=== PATIENT | female | born 1980 | race Caucasian/White ===

== ENCOUNTER 2016-09-01 11:50 | Emergency (ER) | payer OTHER ==
[~2016-09-01] VITALS: Ht 172.7 cm; Wt 77.1 kg
[~2016-09-01 11:50] MED LIST: ACHYD1T PO; AGM875T PO; BUPR-168 PO; CEFP250T2 PO; CLIN300C3 PO; CYCL-97 PO; DICL50TA3 PO; HYDR-34 PO; HYDR-757 PO; IBUP-15 PO; LIDO5CRE20 TP; MUPI15CR TP; NAPR550T PO; NF-OLOP5ML OP; RIVA20TA PO; SENN1TAB76 PO; SULF1TAB35 PO; TRAM-21 PO; WARF6TAB PO; WRF1T PO; WRF2T PO
[2016-09-01] MEDS ORDERED: SULF1TAB35 PO (12:10)
[2016-09-01] MEDS ORDERED: HYDR-757 PO (12:10)
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
[2016-09-01] MEDS ORDERED: TRIM/SULFAMETH 160/800 (SEPTRA DS) TAB PO ONE (12:15)
[2016-09-01] MEDS ORDERED: HYDROcodone/APAP 5 MG/325 MG (LORTAB) TAB PO ONE (12:15)
[2016-09-01 12:22] VITALS: BP 124/70
== END 2016-09-01 12:22 | disposition home or self-care (01) ==
LOC: EDUNIT# 11:50 → ER 11:53
DX: L02.412 Cutaneous abscess of left axilla (principal)
CPT/HCPCS: 99281

== ENCOUNTER 2019-11-01 00:32 | Emergency (ER) | payer SELFPAY ==
[~2019-11-01] VITALS: Ht 182.9 cm; Wt 99.8 kg
[~2019-11-01 00:32] MED LIST changes: +HYDR-4226 PO; -HYDR-757 PO; -LIDO5CRE20 TP; +LIDO5CRE24 TP; -RIVA20TA PO; +RIVA20TA2 PO
--- OUTSIDE RECORDS SUMMARY | 2019-11-01 00:38 | XMS REPORT ---
Author Author [facility] Organization [facility] 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 Name Role Phone MARK JACOBSON Unavailable NO, LOCAL PHYSICIAN Unavailable Unavailable MARK JACOBSON Unavailable MARK JACOBSON Unavailable MARK JACOBSON Unavailable ESTEPHANIA QUINTERO Unavailable Unavailable MARK JACOBSON MD Unavailable Unavailable MARK JACOBSON MD Unavailable Unavailable LYNDA LAUREANO DO Unavailable Unavailable JAMES ALLEN Unavailable Unavailable MARK JACOBSON MD Unavailable Unavailable AMY VERA APRN Unavailable Unavailable BRUNO GALVAN MD Unavailable Unavailable YULI KRUGER Unavailable Unavailable VIRIDIANA ANDERSON DO Unavailable Unavailable Unavailable Unavailable PCP, OUTSIDE Unavailable Unavailable Allergies Normalized Allergy Reported Date of Reaction(s) Care Provider Facility Allergy Type classification allergen Allergy Onset DA (20 Unclassified No Known Drug 11-07-2012 - no information MARK JACOBSON Not Available sources.) Allergies MD (03270) Medications No Information Problems Active Problems Problem Normalized Date of Normalized Normalized Provider Fac ility Classification Problem(s) Problem Problem Problem Sta tus Onset/Resoluti Duration on Asthma (2 Asthma, Chronic Active MARK JACOBSON Not Avai lable sources.) unspecified MD (81514) type, unspecified Phlebitis; Chronic venous Chronic Active JAMES ALLEN Not Available thrombophlebit embolism and (53460) is and thrombosis of thromboembolis unspecified m (2 sources.) deep vessels of lower extremity Coagulation Other and Chronic Active ESTEPHANIA Not Availa ble and unspecified DARLENE GARCIA (37669) hemorrhagic coagulation disorders (1 defects source.) Systemic lupus Systemic lupus Chronic Active ESTEPHANIA No t Available erythematosus erythematosus DARLENE GARCIA (71468) and connective tissue disorders (2 sources.) Substance-rela Tobacco use Chronic Active MARK JACOBSON Not Available maris disorders disorder , (35120) (2 sources.) Past or Other Problems Problem Normalized Date of Normalized Normalized Provider Fac ility Classification Problem(s) Problem Problem Problem Sta tus Onset/Resoluti Duration on Other Abnormal Episodic Completed ESTEPHANIA Not Available screening for coagulation DARLENE GARCIA (31051) suspected profile conditions (not mental disorders or infectious disease) (1 source.) Phlebitis; Acute venous Episodic Completed MARK JACOBSON Not Available thrombophlebit embolism and , () is and thrombosis of thromboembolis deep vessels m (6 sources.) of proximal lower extremity Translations: [ HX-VENOUS THROMBOSIS EMBOLISM, VENOUS THROMBOSIS NOS] Deficiency and Anemia, Episodic Completed MARKAncelmo JACOBSON Not Available other anemia unspecified , () (1 source.) Nonspecific Chest pain, Episodic Completed ESTEPHANIA Not Avai lable chest pain (2 unspecified DARLENE GARCIA (49275) sources.) Other Encounter for Episodic Completed MARKAncelmo JACOBSON Not Available aftercare (4 therapeutic , (56350) sources.) drug monitoring Residual Family history Episodic Completed MARK INDIRA No t Available codes; of ischemic MD () unclassified heart disease (1 source.) Fluid and Hypopotassemia Episodic Completed MARKAncelmo JACOBSON No t Available electrolyte MD () disorders (1 source.) Other Long-term Episodic Completed ESTEPHANIA Not Availabl e aftercare (7 (current) use DARLENE GARCIA (62060) sources.) of anticoagulants Other Long-term Episodic Completed LYNDA LAUREANO Not Kadi ilable aftercare (1 (current) use , (80292) source.) of other medications Septicemia Methicillin Episodic Completed MARKAncelmo JACOBSON Not Available (except in susceptible MD () labor) (2 Staphylococcus sources.) aureus septicemia Translations: [ SEPSIS] Other eye Other Episodic Completed ESTEPHANIA Not Available disorders (1 ill-defined DARLENE GARCIA (47660) source.) disorders of eye Other liver Other Episodic Completed VIRIDIANA ANDERSON DO Not Av ailable diseases (1 nonspecific (80993) source.) abnormal serum enzyme levels Immunizations Other Episodic Completed MARK INDIRA Not Available and screening specified , () for infectious vaccinations disease (1 against source.) streptococcus pneumoniae [pneumococcus] Other Pain in limb Episodic Completed ESTEPHANIA Not Avail able connective DARLENE GARCIA (43919) tissue disease (1 source.) Other eye Pain in or Episodic Completed ESTEPHANIA Not Availab le disorders (1 around eye DARLENE GARCIA (31568) source.) Other lower Shortness of Episodic Completed YULI Not Kadi ilable respiratory breath KRUGER (19886) disease (1 source.) Other Spasm of Episodic Completed ESTEPHANIA Not Available connective muscle DARLENE GARCIA (02915) tissue disease (1 source.) Other Unspecified Episodic Completed VIRIDIANA JUSTIN , DO Not A vailable aftercare (2 follow-up (30717) sources.) examination Procedures Procedure Normalized Procedure Procedure Result Performer Facility Date OTHER SKIN SUBQ I D no information no name (no phone) Not Av ailable (75880) VENOUS CATHETERIZATION no information no name (no phone) Not Available (86497) NEC Immunizations The data below is from unstructured sourcesNo immunization records. Results The data below is from unstructured sourcesNo known relevant diagnostic tests, laboratory data and/or discharge summary.No known relevant diagnostic tests, laboratory data and/or discharge summary.No known relevant diagnostic tests, laboratory data and/or discharge summary.No Known Relevant Diagnostic Tests, Laboratory Data and/or Discharge Summary.No Known Rel evant Diagnostic Tests, Laboratory Data and/or Discharge Summary.No Known Releva nt Diagnostic Tests, Laboratory Data and/or Discharge Summary.No Known Relevant Diagnostic Tests, Laboratory Data and/or Discharge Summary. Vital Signs The data below is from unstructured sources Vital Response Date/Time Temperature (Fahrenheit) 98.3 degree s F (97.6 - 99.5) 09/01/2016 12:16pm Temperature (Calculated Celsius) 36. 64034 degrees C (36.4 - 37.5) 09/01/2016 12:16pm Temperature Source Temporal 09/01/2016 12:16pm Pulse Rate (adult) 70 bpm (60 - 90) 09/01/2016 11:55am Respiratory Rate 16 bpm (12 - 24) 09/01/2016 11:55am O2 Sat by Pulse Oximetry 99 % (88 - 100) 09/01/2016 11:55am Blood Pressure 124/90 mm Hg 09/01/2016 11:55am Blood Pressure Mean 101 mm Hg 09/01/2016 11:55am Pain Numeric Pain Scale 5-Moderate Pain 09/01/2016 12:16pm Height (Feet) 5 feet 06/2017 11:55am Height (Inches) 8 inches 09/01/2016 11:55am Height (Calculated Centimeters) 172. 627916 cm 09/01/2016 11:55am Weight (Pounds) 170 pounds 09/01/2016 11:55am Weight (Calculated Kilograms) 77.110 704 kilograms 09/01/2016 11:55am Capillary Refill Capillary Refill Less Than 3 Seconds 09/01/2016 11:55am Height 5 ft 8 in Weight 170 lb Body Mass Index 25.8 kg/m^2 Vital Response Date/Time Temperature (Fahrenheit) 97.0 degree s F (97.6 - 99.5) 03/17/2015 6:10pm Temperature (Calculated Celsius) 36. 56974 degrees C (36.4 - 37.5) 03/17/2015 6:10pm Pulse Rate (adult) 97 bpm (60 - 90) 03/17/2015 6:10pm Respiratory Rate 20 bpm (12 - 24) 03/17/2015 6:10pm O2 Sat by Pulse Oximetry 99 % (88 - 100) 03/17/2015 6:10pm Blood Pressure 122/80 mm Hg 03/17/2015 6:10pm Blood Pressure Mean 94 mm Hg 03/17/2015 6:10pm Pain Pain Intensity 5 2014 7:06pm Height (Feet) 6 feet 6:10pm Height (Calculated Centimeters) 182. 092853 cm 03/17/2015 6:10pm Weight (Pounds) 160 pounds 03/17/2015 6:10pm Weight (Calculated Kilograms) 72.574 780 kilograms 03/17/2015 6:10pm Height 6 ft 0 in Weight 160 lb Body Mass Index 21.7 kg/m^2 Vital Response Date/Time Temperature (Fahrenheit) 98.2 degree s F (97.6 - 99.5) 03/21/2015 4:30pm Temperature (Calculated Celsius) 36. 83699 degrees C (36.4 - 37.5) 03/21/2015 4:30pm Pulse Rate (adult) 84 bpm (60 - 90) 03/21/2015 4:30pm Respiratory Rate 20 bpm (12 - 24) 03/21/2015 4:30pm O2 Sat by Pulse Oximetry 99 % (88 - 100) 03/21/2015 4:30pm Blood Pressure 112/75 mm Hg 03/21/2015 4:30pm Blood Pressure Mean 87 mm Hg 03/21/2015 4:30pm Pain Pain Intensity 3 2014 4:30pm Height (Feet) 5 feet 07/2014 4:30pm Height (Inches) 10 inches 03/21/2015 4:30pm Height (Calculated Centimeters) 177. 591436 cm 03/21/2015 4:30pm Weight (Pounds) 175 pounds 03/21/2015 4:30pm Weight (Calculated Kilograms) 79.378 666 kilograms 03/21/2015 4:30pm Calculated BMI 25.11 07/2014 4:30pm Vital Response Date/Time Temperature (Fahrenheit) 98.0 degree s F (97.6 - 99.5) Temperature (Calculated Celsius) 36. 21401 degrees C (36.4 - 37.5) Temperature Source Temporal Pulse Rate (adult) 100 bpm (60 - 90) Respiratory Rate 16 bpm (12 - 24) O2 Sat by Pulse Oximetry 98 % (88 - 100) Blood Pressure 122/107 mm Hg Pain Pain Intensity 10 Height (Feet) 6 feet Height (Inches) 0 inches Height (Calculated Centimeters) 182. 123149 cm Weight (Pounds) 165 pounds Weight (Calculated Grams) 14000.704 gm Weight (Calculated Kilograms) 74.842 742 kilograms Calculated BMI 22.38 Vital Response Date/Time Temperature (Fahrenheit) 97.3 degree s F (97.6 - 99.5) Temperature (Calculated Celsius) 36. 38791 degrees C (36.4 - 37.5) Temperature Source Temporal Pulse Rate (adult) 74 bpm (60 - 90) Respiratory Rate 20 bpm (12 - 24) O2 Sat by Pulse Oximetry 94 % (88 - 100) Blood Pressure 134/61 mm Hg Pain Pain Intensity 0 Height (Feet) 6 feet Height (Calculated Centimeters) 182. 390691 cm Weight (Pounds) 170 pounds Weight (Calculated Kilograms) 77.110 704 kilograms Height 6 ft 0 in Weight 170 lb Body Mass Index 23.1 kg/m^2 Vital Response Date/Time Temperature (Fahrenheit) 98.8 degree s F (97.6 - 99.5) Temperature (Calculated Celsius) 37. 41911 degrees C (36.4 - 37.5) Temperature Source Temporal Pulse Rate (adult) 74 bpm (60 - 90) Respiratory Rate 18 bpm (12 - 24) O2 Sat by Pulse Oximetry 100 % (88 - 100) Blood Pressure 128/86 mm Hg Pain Pain Intensity 10 Height (Feet) 6 feet Height (Inches) 0 inches Height (Calculated Centimeters) 182. 859567 cm Weight (Pounds) 170 pounds Weight (Calculated Kilograms) 77.110 704 kilograms Calculated BMI 23.05 Vital Response Date/Time Temperature (Fahrenheit) 98.8 degree s F (97.6 - 99.5) Temperature (Calculated Celsius) 37. 49845 degrees C (36.4 - 37.5) Temperature Source Temporal Pulse Rate (adult) 74 bpm (60 - 90) Respiratory Rate 18 bpm (12 - 24) O2 Sat by Pulse Oximetry 100 % (88 - 100) Blood Pressure 128/86 mm Hg Pain Pain Intensity 10 Height (Feet) 6 feet Height (Inches) 0 inches Height (Calculated Centimeters) 182. 755373 cm Weight (Pounds) 170 pounds Weight (Calculated Kilograms) 77.110 704 kilograms Calculated BMI 23.05 Interventions No Information Plan of Treatment The data below is from unstructured sources Discharge Date 09/01/16 12:22pm Disposition 01 HOME, SELF-CARE Condition at Discharge Stable Instructions/Education Provided ABSC ESS Prescriptions See Medication Section Referrals MARK JACOBSON MD [facility] Physician Additional Instructions/Education 1. Warm compresses to the arm pit. Fill a sock with rice and microwave it then laid over this area 2. Pain medication and antibiotics as di rected 3. Follow-up with your doctor this week Discharge Date 03/17/15 7:06pm Disposition 01 HOME, SELF-CARE Condition at Discharge Improved Instructions/Education Provided Absc ess Incision and Drainage (ED) Abscess (ED) Prescriptions See Medication Section Referrals MARK JACOBSON MD [facility] Physician Additional Instructions/Education 1. You may shower. Keep these areas covered with gauze as they will continue to drain 2. Return to ER for any worsening pain s welling or fevers 3. Antibiotics as directed 4. Return to the emergency room on or Friday to have the drains removed All discharge instructions reviewed with patient and/or family. Voiced understanding. Discharge Date 03/21/15 6:04pm Disposition 01 HOME, SELF-CARE Condition at Discharge Improved Instructions/Education Provided Stye (ED) Abscess (ED) Abrasion (ED) Prescriptions See Medication Section Referrals MARK JACOBSON MD - [facility] Physician Additional Instructions/Education Al l discharge instructions reviewed with patient and/or family. Voiced understanding. Medications as instructed. Continue medications as prescribed by Amy Vera APRN. Tylenol Extra Strength [id number] as directed for pain. Ibuprofen 800 mg by mouth every 8 hours as needed for pain. Shower with antibacterial soap. Apply Bactroban is instructed to the skin tears. Follow-up with her family practitioner as an outpatient in the next 3-5 days, call for appointment time. Return to the emergency department for worsened pain, drainage, fever, redness, vomiting, swelling, or any other concerns. No plan of care. Goals No Information Social History The data below is from unstructured sources History Response Recorde d Date/Time Hx Family Cancer Y mom-skin 11/07/12 9:33pm Hx Family Breast Cancer N 11/07/12 9:33pm Hx Family Lung Cancer N 11/07/12 9:33pm Hx Family Colorectal Cancer N 11/07/12 9:33pm History Response Recorde d Date/Time Alcohol Use Denies Use 0 11/08/12 1:51pm Recreational Drug Use N 11/08/12 1:51pm Recent Foreign Travel N 11/07/12 9:27pm Recent Infectious Disease Exposure N 11/08/12 1:51pm History Response Recorde d Date/Time Hx Family Cancer Y mom-skin 11/07/12 9:33pm Hx Family Breast Cancer N 11/07/12 9:33pm Hx Family Lung Cancer N 11/07/12 9:33pm Hx Family Colorectal Cancer N 11/07/12 9:33pm Hx Family Stroke N 11/07 9:33pm Hx Family Hypertension Y mom 11/07/12 9:33pm Hx Family Myocardial Infarction Y mom 11/07/12 9:33pm Hx Family Cystic Fibrosis N 11/07/12 9:33pm History Response Recorde d Date/Time Alcohol Use Denies Use 0 02/08/13 1:04pm Recreational Drug Use N 02/08/13 1:04pm Recent Foreign Travel N 02/08/13 1:04pm Recent Infectious Disease Exposure N 02/08/13 1:04pm Sexually Transmitted Disease N 02/08/13 1:04pm HIV/AIDS N 02/08/13 1:04 pm Functional Status The data below is from unstructured sources Query Response Date Servando rded Patient Orientation Person Place Time Situation Normal For Age July 23, 2014 10:30pm Comprehension Ability Understands Co ncepts July 23, 2014 10:30pm Mental Status No Information Encounters Encounter Normalized Encounter Encounter Diagnosis Care Provi nic Organization Date Type 07-23-2014 Emergency department no information no name (no ethan ne) no organization name - patient visit (no phone) 07-24-2014 06-10-2019 Patient encounter no information no name (no phone) no organization name procedure (no phone) 09-01-2016 Patient encounter no information no name (no phone) no organization name procedure (no phone) 08-14-2015 Patient encounter no information no name (no phone) no organization name procedure (no phone) 06-24-2013 Patient encounter no information no name (no phone) no organization name procedure (no phone) 05-25-2013 Patient encounter no information no name (no phone) no organization name procedure (no phone) 05-19-2013 Patient encounter no information no name (no phone) no organization name - procedure (no phone) 06-22-2013 03-03-2013 Patient encounter no information no name (no phone) no organization name - procedure (no phone) 05-24-2013 02-18-2013 Patient encounter no information no name (no phone) no organization name procedure (no phone) 02-15-2013 Patient encounter no information no name (no phone) no organization name procedure (no phone) 02-08-2013 Patient encounter no information no name (no phone) no organization name - procedure (no phone) 02-16-2013 Medical Equipment No Information Payers Normalized Payer Value Private Health Insurance [id number] Advance Directives Directive Response Recor ded Date/Time Advance Directives No 12:19pm Health Care Power of Mounter Hand No 09/01/16 12:19pm Organ Donor Yes 09/01/16 12:19pm Resuscitation Status Full Code 02/12/17 12:19pm Directive Response Recor ded Date/Time Advance Directives No 6:10pm Health Care Power of Mounter Hand No 03/17/15 6:10pm Organ Donor Yes 03/17/15 6:10pm Resuscitation Status Full Code 03/17/15 6:10pm Directive Response Recor ded Date Advance Directives N 9:27pm Health Care Power of Mounter Hand N 11/07/12 9:27pm Organ Donor Y 11/07/12 9 :27pm Directive Response Recor ded Date/Time Advance Directives No 4:50pm Health Care Power of Mounter Hand No 03/21/15 4:50pm Organ Donor Yes 03/21/15 4:50pm Resuscitation Status Full Code 03/21/15 4:50pm Directive Response Recor ded Date Advance Directives N 1:04pm Health Care Power of Mounter Hand N 02/08/13 1:04pm Organ Donor Y 02/08/13 1 :04pm Directive Response Recor ded Date/Time Advance Directives No 12:23am Health Care Power of Mounter Hand No 10/30/14 12:23am Organ Donor Yes 10/30/14 12:23am Resuscitation Status Full Code 10/30/14 12:23am Directive Response Recor ded Date/Time Advance Directives No 2:15am Health Care Power of Mounter Hand No 06/09/14 2:15am Organ Donor Yes 06/09/14 2:15am Resuscitation Status Full Code 06/09/14 2:15am Directive Response Recor ded Date/Time Advance Directives No 10:28pm Health Care Power of Mounter Hand No 07/23/14 10:28pm Organ Donor Yes 07/23/14 10:28pm Resuscitation Status Full Code 07/23/14 10:28pm Discharge Instructions No hospital discharge instructions.No hospital discharge instructions.No hospital discharge instructions.No hospital discharge instructions.No hospital discharge instructions.No hospital discharge instructions.No hospital discharge instructions. Additional Source Comments This clinical document has been generated using [employer] software that has been certified by the Office of the National Coordinator for Health Information Technology (ONC 15.99.04.3023.Diam.31.00.0.600377) and the National Committee for [employer] Operations Manager (NCQA, as an eMeasure certified technology). FOR RECORDS PERTAINING TO PATIENTS WHO ARE OR HAVE BEEN ENROLLED IN A CHEMICAL D EPENDENCY/SUBSTANCE ABUSE PROGRAM, SOME INFORMATION MAY BE OMITTED. This clinica l summary was aggregated from multiple sources. Caution should be exercised in using it in the provision of clinical care. This summary normalizes information from multiple sources, and as a consequence, information in this document may ma terially change the coding, format and clinical context of patient data. In maribel tion, data may be omitted in some cases. CLINICAL DECISIONS SHOULD BE BASED ON T HE PRIMARY CLINICAL RECORDS. [facility]. provides no warranty or guara ntee of the accuracy or completeness of information in this document.The followi information is based on time limited clinical information
--- NOTE | 2019-11-01 01:08 | NUR ---
COVID-19 swab walked to lab by RON Campos.
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
[2019-11-01 01:27] LABS: BASOPHILS % (AUTO) 0 % (0-10); EOSINOPHILS # (AUTO) 0.2 10^3/uL (0.0-0.3); EOSINOPHILS % (AUTO) 2 % (0-10); HEMATOCRIT 41 % (35-52); HEMOGLOBIN 13.2 G/DL (11.5-16.0); LYMPHOCYTES # (AUTO) 3.3 X 10^3 (1.0-4.0); LYMPHOCYTES % (AUTO) 28 % (12-44); MEAN CORPUSCULAR HEMOGLOBIN 28 PG (25-34); MEAN CORPUSCULAR HGB CONC 32 G/DL (32-36); MEAN CORPUSCULAR VOLUME 86 FL (80-99); MEAN PLATELET VOLUME 9.8 FL (7.4-10.4); MONOCYTES # (AUTO) 0.4 X 10^3 (0.0-1.0); MONOCYTES % (AUTO) 4 % (0-12); NEUTROPHILS # (AUTO) 7.7 X 10^3 (1.8-7.8); NEUTROPHILS % (AUTO) 66 % (42-75); PLATELET COUNT 309 10^3/uL (130-400); RED CELL DISTRIBUTION WIDTH 18.3 % (10.0-14.5); WHITE BLOOD COUNT 11.6 10^3/uL (4.3-11.0)
[2019-11-01 01:31] LABS: BILIRUBIN,URINE NEGATIVE (NEGATIVE); CLARITY,URINE SL CLOUDY; COLOR,URINE YELLOW; GLUCOSE, URINE (UA) NEGATIVE (NEGATIVE); KETONES,URINE NEGATIVE (NEGATIVE); LEUKOCYTE ESTERASE ,URINE 1+ (NEGATIVE); NITRITE,URINE NEGATIVE (NEGATIVE); PH,URINE 6.5 (5-9); PROTEIN,URINE NEGATIVE (NEGATIVE)
[2019-11-01 01:38] LABS: ALBUMIN 4.3 GM/DL (3.2-4.5); CHLORIDE 104 MMOL/L (98-107); POTASSIUM 3.3 MMOL/L (3.6-5.0); SODIUM 139 MMOL/L (135-145)
[2019-11-01 01:39] LABS: CALCIUM 9.8 MG/DL (8.5-10.1)
[2019-11-01 01:40] LABS: GLUCOSE 86 MG/DL (70-105); TOTAL PROTEIN 8.5 GM/DL (6.4-8.2)
[2019-11-01 01:41] LABS: CARBON DIOXIDE 22 MMOL/L (21-32)
[2019-11-01 01:42] LABS: BILIRUBIN,TOTAL 0.1 MG/DL (0.1-1.0)
[2019-11-01 01:44] LABS: ALKALINE PHOSPHATASE 136 U/L (40-136); GFR ESTIMATED > 60
[2019-11-01 01:45] LABS: BUN/CREATININE RATIO 13
[2019-11-01 01:47] LABS: ALANINE AMINOTRANSFERASE 6 U/L (0-55); CREATINE KINASE 29 U/L (29-168)
[2019-11-01 01:55] LABS: BACTERIA,URINE NEGATIVE /HPF; CREATINE KINASE MB 0.6 NG/ML (<6.6); RBC,URINE 0-2 /HPF; TRICHOMONAS,URINE FEW /HPF
[2019-11-01 01:56] LABS: AMPHETAMINE SCREEN, URINE POSITIVE (NEGATIVE); BARBITURATE SCREEN URINE POSITIVE (NEGATIVE); BENZODIAZEPINES SCREEN URINE NEGATIVE (NEGATIVE); CANNABINOID SCREEN, URINE NEGATIVE (NEGATIVE); COCAINE SCREEN URINE NEGATIVE (NEGATIVE); METHADONE STAT NEGATIVE (NEGATIVE); METHAMPHETAMINE SCREEN URINE S POSITIVE (NEGATIVE); OPIATE SCREEN URINE NEGATIVE (NEGATIVE); OXYCODONE STAT NEGATIVE (NEGATIVE); PROPOXYPHENE STAT NEGATIVE (NEGATIVE); TRICYCLIC ANTIDEPRESSANTS SCRE NEGATIVE (NEGATIVE)
[2019-11-01 02:09] LABS: INR 0.9 (0.8-1.4); PROTHROMBIN TIME PATIENT 12.4 SEC (12.2-14.7)
[2019-11-01] MEDS ORDERED: IOHEXOL 350 MG/ML 100 ML (OMNIPAQUE 350) VIAL IV ONE (03:00)
[2019-11-01] MEDS ORDERED: NS 100 ML (IVPB) BAG IV ONE (03:00)
[2019-11-01] MEDS ORDERED: HOLD METFORMIN - RECEIVED CONTRAST 20 ML VIAL IV SCH (03:00)
[2019-11-01] MEDS ORDERED: CIPR500T4 PO (03:25)
[2019-11-01] MEDS ORDERED: METR500T PO (03:25)
[2019-11-01] MEDS ORDERED: RT-ALBUINH IH (03:28)
[2019-11-01] MEDS ORDERED: [UNRECOGNIZED DRUG - OTHER] (03:28)
[2019-11-01 03:33] VITALS: BP 130/82
--- NOTE | 2019-11-01 06:17 | Diagnostic Imaging Report ---
INDICATION: Cough and congestion. COMPARISON: 11/07/2012 FINDINGS: Single view of the chest demonstrates clear lungs bilaterally. The heart is normal. There is no pneumothorax. Osseous structures are age-appropriate. IMPRESSION: Negative chest. Dictated by: Dictated on workstation # [id number]
--- NOTE | 2019-11-01 06:24 | Diagnostic Imaging Report ---
PROCEDURE: CT angiography of the chest with contrast. TECHNIQUE: Multiple contiguous axial images were obtained through the chest after uneventful bolus administration of intravenous contrast. 3D reconstructed CTA MIP acquisitions were also performed. Auto Exposure Controls were utilized during the CT exam to meet ALARA standards for radiation dose reduction. INDICATION: Cough and congestion, shortness of breath, chest pain. COMPARISON: 02/08/2013 FINDINGS: The heart, pulmonary arteries and aorta are grossly unremarkable. There is no lymphadenopathy. Central airways are grossly normal. The lungs are clear throughout. There is no nodule, infiltrate, effusion or pneumothorax. Osseous structures and chest wall are intact. Visualized upper abdominal solid organs are normal. IMPRESSION: Negative CT angiogram chest. No pulmonary embolism identified. Agree with preliminary report. Dictated by: Dictated on workstation # [id number]
[2019-11-02 14:07] LABS: PARAINFLU 1 PCR Not Detected (Not Detected); PARAINFLU 2 PCR Not Detected (Not Detected)
== END 2019-11-01 03:33 | disposition home or self-care (01) ==
LOC: EDUNIT# 00:32 → ER 00:34
DX: J06.9 Acute upper respiratory infection, unspecified (principal); B34.9 Viral infection, unspecified; N39.0 Urinary tract infection, site not specified; A59.9 Trichomoniasis, unspecified; J45.909 Unspecified asthma, uncomplicated; F17.210 Nicotine dependence, cigarettes, uncomplicated; Z86.718 Personal history of other venous thrombosis and embolism; F32.9 Major depressive disorder, single episode, unspecified
CPT/HCPCS: 36415; 71045; 71275; 80053; 80306; 81000; 82550; 82553; 83605; 83615; 83735; 83874; 83880; 84145; 84484; 84703; 85025; 85610; 85730; 87040; 87088; 87430; 87631; 87635; 87798; 87804; 93041